=== PATIENT | female | born 1930 | race Caucasian/White ===

== ENCOUNTER 2018-05-08 22:16 | Emergency (ER) | payer OTHER ==
[~2018-05-08] VITALS: Ht 157.5 cm; Wt 69.9 kg
[2018-05-08 22:35] VITALS: BP_SYST 182
[2018-05-08] MEDS ORDERED: ACETAMINOPHEN 500 MG TABLET PO ONE (23:00)
[2018-05-08 23:36] VITALS: BP_SYST 160
== END 2018-05-08 23:40 | disposition home or self-care (01) ==
LOC: SED 22:16
DX: S49.91XA Unspecified injury of right shoulder and upper arm, initial encounter (principal); K21.9 Gastro-esophageal reflux disease without esophagitis; I10 Essential (primary) hypertension; E78.00 Pure hypercholesterolemia, unspecified; M19.90 Unspecified osteoarthritis, unspecified site; Z90.710 Acquired absence of both cervix and uterus; W19.XXXA Unspecified fall, initial encounter; Y93.89 Activity, other specified; Y92.89 Other specified places as the place of occurrence of the external cause; Y99.8 Other external cause status
CPT/HCPCS: 73030; 73060-TC; 99283

== ENCOUNTER 2019-01-29 15:09 | Emergency (ER) | payer OTHER, MEDICAID ==
[~2019-01-29] VITALS: Ht 157.5 cm; Wt 68.9 kg
[2019-01-29 15:16] VITALS: BP_SYST 182
--- NOTE | 2019-01-29 15:25 | NUR ---
Patient to ER bed 6 to gown for evaluation. Side rails up. Assumed care.
--- NOTE | 2019-01-29 15:26 | NUR ---
Patient brought in by EMS, AAOx4, and ambulatory with steady gait. Patient states she had a mechanical fall on her patio. Patient states she tripped and fall, falling forward, and striking face. Abrasion to nose and right upper cheek. Patient also has laceration to right forehead. Patient states mild non radiating facial pain, and nose pain. No LOC, and no dizziness or lightheadedness prior to fall. Will continue to follow up and monitor.
--- NOTE | 2019-01-29 15:27 | NUR ---
ANDREW Wright at bedside examining patient.
[2019-01-29] MEDS ORDERED: ACETAMINOPHEN 500 MG TABLET PO ONE (17:00)
[2019-01-29] MEDS ORDERED: DIPH-TET-PERTUS Vaccine 0.5 ML VIAL (ADACEL) I.M. ONE (17:00)
[2019-01-29] MEDS ORDERED: cloNIDine HCL 0.1 MG TABLET PO ONE (17:15)
--- NOTE | 2019-01-29 17:33 | NUR ---
Patient ambulated to restroom with steady gait. Patient resumed on monitor for blood pressure after giving Clonidine. Patient sitting upright at bedside. Will continue to follow up and monitor.
[2019-01-29 18:15] VITALS: BP_SYST 128
--- NOTE | 2019-01-29 18:15 | NUR ---
Patient given written and verbal discharge instructions and verbalizes understanding. ER MD discussed with patient the results and treatment provided. Patient in stable condition. ID arm band removed. IV catheter removed intact and dressing applied, no active bleeding. Rx not given. Patient educated on pain management and to follow up with PMD. Pain Scale 0/10. Opportunity for questions provided and answered. Medication side effect fact sheet provided.
== END 2019-01-29 18:15 | disposition home or self-care (01) ==
LOC: SED 15:09
DX: S02.2XXA Fracture of nasal bones, initial encounter for closed fracture (principal); K21.9 Gastro-esophageal reflux disease without esophagitis; I10 Essential (primary) hypertension; E78.00 Pure hypercholesterolemia, unspecified; G62.9 Polyneuropathy, unspecified; Z95.0 Presence of cardiac pacemaker; W18.09XA Striking against other object with subsequent fall, initial encounter; Y93.89 Activity, other specified; Y92.89 Other specified places as the place of occurrence of the external cause; Y99.8 Other external cause status
CPT/HCPCS: 70450-TC; 70486-TC; 90715; 99284